=== PATIENT | female | born 1945 | race Caucasian/White ===

== ENCOUNTER → 2021-09-19 | Outpatient (CLI) | payer MEDICARE, OTHER, SELFPAY ==
--- NOTE | 2021-09-19 | CYSPIN_PTH ---
PATIENT: PJ GAYTAN LOC: [facility] U#:[id number] AGE/SX: 76/F ROOM: RE09/19/[address]: Dr. Bladimir Duran MD : 1945 BED: DIS: 09/19/2021 SPEC #: [id number] RECD: 09/19/21 14:00 STATUS: SHIRLENE GALINA #: [id number] STORMY: 09/19/21 00:[address]: Bladimir Duran DEPT: CYTOLOGY RECD BY: Valdez Broussard ENTERED: 09/20/21 07:48 SP TYPE: CYSPIN FL OTHR DR: No Primary Care Phys Tissues: Urine Procedures: Pap Stain (control) Special Stain Group II Cytospin Fluid HEADER OPERATION: Not noted PRE-OP DIAGNOSIS: Hematuria TISSUE SUBMITTED: Urine for cytology DIAGNOSIS CYTOLOGY Urine for cytology (cytospin): Rare atypical urothelial cells noted. See comment. SJ:diamond 09/20/2021 COMMENT Numerous red blood cells are also present. Clinical correlation and appropriate follow up are necessary. Case has been reviewed in consultation with Dr. Cortés who concurs with the above diagnosis. IDC:AM CYTOLOGY STUDY Slides are reviewed. CYTOLOGY GROSS Received is 25 ml of hazy yellow fluid labeled with the patient's name and and designated per the requisition as urine. Submitted for cytology preparation. / diamond 09/20/2021 TC:5 CPT: 35717
[2021-09-19 17:44] LABS: Cytology, Body Fluid / CSF SEE PATHOLOGY REPORT
== END | disposition home or self-care (01) ==
LOC: LABSPEC 16:56
PROVIDERS: Referring Provider Urology; Visit Provider Urology
DX: R31.9 Hematuria, unspecified (principal)
CPT/HCPCS: 88108; 88313